=== PATIENT | female | born 1990 | race Caucasian/White ===

== ENCOUNTER 2016-08-21 03:29 | Emergency (ER) | payer OTHER ==
[~2016-08-21] VITALS: Ht 160 cm; Wt 64.0 kg
[2016-08-21 03:38] VITALS: Ht 160 cm; Wt 64.0 kg
[2016-08-21] MEDS ORDERED: HYDROCODONE/APAP (5/325) TAB PO ONE (04:00)
[2016-08-21] MEDS ORDERED: AMO500 PO (04:05)
[2016-08-21] MEDS ORDERED: IBUP-1542 PO (04:05)
[2016-08-21] MEDS ORDERED: HYDR-906 PO (04:07)
--- NOTE | 2016-08-21 04:07 | ERD ---
ER Documentation Chief Complaint Date/Time DATE: 08/21/16 TIME: 04:04 Chief Complaint R lower tooth pain after dental procedure HPI 25-year-old female presents here in emergency department for complaint of right lower molar pain after dental procedure done 4 days ago, ever since, she started to have the pain throbbing pain 8/10 scale, is worse upon eating. Patient took ibuprofen for pain and is currently on antibiotics, amoxicillin with only mild relief. Patient denies any fever or chills. Patient denies any facial swelling. Patient denies any facial pain. Patient did not have any trauma on affected area. ROS All systems reviewed and are negative except as per history of present illness. Medications Home Meds Reported Medications Amoxicillin* (Amoxicillin*) Unknown Strength Cap, PO TID for 7 Days, CAP 08/21/16 Ibuprofen* (Motrin*) Unknown Strength Tab, PO Q6, #30 TAB 08/21/16 Allergies Allergies: Coded Allergies: No Known Allergy (Unverified , 08/21/16) PMhx/Soc History of Surgery: Yes ([facility] 05/2016) Anesthesia Reaction: No Hx Alcohol Use: Yes (rarely) Hx Substance Use: No Hx Tobacco Use: No Smoking Status: Former smoker FmHx Family History: No coronary disease, No diabetes, No other Physical Exam Vitals Vital Signs Date Time Temp Pulse Resp B/P Pulse Ox O2 Delivery O2 Flow Rate FiO2 08/21/16 03:38 98.9 63 18 119/93 100 Physical Exam GENERAL: The patient is well developed and appropriate for usual state of health, in no apparent distress. HEENT: Atraumatic. Ears: Normal tympanic membrane, no erythema or bulging. No ear canal swelling. No ear discharge. Nose: normal nasal turbinates, no erythema or swelling. Normal nasal discharge. Throat: oropharynx clear. No tonsillar swelling or tonsillar exudates. No lymphadenopathy. Noted right lower molar with mild tenderness on palpation, noted filling. No facial swelling, no fluctuance noted. CHEST: Clear to auscultation bilaterally. There are no rales, wheezes or rhonchi. HEART: Regular rate and rhythm. No murmurs, clicks, rubs or gallops. No S3 or S4. ABDOMEN: Soft, nontender and nondistended. Good bowel sounds. No rebound or guarding. No gross peritonitis. No gross organomegaly or masses. No Delong sign or McBurney point tenderness. BACK: No midline or flank tenderness. EXTREMITIES: Equal pulses bilaterally. There is no peripheral clubbing, cyanosis or edema. No focal swelling or erythema. Full range of motion. Grossly neurovascularly intact. NEURO: Alert and oriented. Cranial nerves 2-12 intact. Motor strength in all 4 extremities with 5/5 strength. Sensation grossly intact. Normal speech and gait. SKIN: There is no apparent rash or petechia. The skin is warm and dry. HEMATOLOGIC AND LYMPHATIC: There is no evidence of excessive bruising or lymphedema. No gross cervical, axillary, or inguinal lymphadenopathy. Results 24 hrs Current Medications Medications (Trade) Dose Ordered Sig/Ursula Route PRN Reason Start Time Stop Time Status Last Admin Dose Admin Acetaminophen/ Hydrocodone Bitart ([place] (5/325)) 1 tab ONCE ONCE PO 08/21/16 04:00 08/21/16 04:01 DC Patient was given medication for pain here in emergency department, after treatment, patient verbalized feeling much better. Patient's pain is improved. Procedures/MDM Medical decision making: Patient's symptoms most likely consistent with dental pain from a dental procedure. No symptoms of any acute bacterial infection, currently already on antibiotics. No facial swelling. No fever. No symptoms of abscess. Patient was given for [place] for pain, is advised to continue taking medications given to her, is advised to see dental specialist within 1-2 days for further evaluation and recheck. Patient was advised to return to emergency department. Departure Diagnosis: Primary Impression: Pain, dental Condition: Stable Patient Instructions: Dental Pain Additional Instructions: Patient was given for [place] for pain, is advised to continue taking medications given to her, is advised to see dental specialist within 1-2 days for further evaluation and recheck. Patient was advised to return to emergency department. LARON QUINONEZ NP August 21, 2016 04:07
== END 2016-08-21 04:45 | disposition home or self-care (01) ==
LOC: FTE 03:29
DX: K08.89 Other specified disorders of teeth and supporting structures (principal); Z87.891 Personal history of nicotine dependence
CPT/HCPCS: 99283